=== PATIENT | female | born 1995 | race Caucasian/White ===

== ENCOUNTER 2018-03-20 06:00 | Inpatient (IN) ==
[2018-03-20] MEDS ORDERED: Ondansetron 4 MG/2 ML VIAL IVP PRN ×2 (06:15→07:46)
[2018-03-20] MEDS ORDERED: Famotidine 20 MG/2 ML VIAL IVP PRN (06:15)
[2018-03-20] MEDS ORDERED: Metoclopramide 10 MG/2 ML VIAL IVP PRN (06:15)
[2018-03-20] MEDS ORDERED: *HR* Nalbuphine 10 MG/ML AMPUL IVP PRN (06:15)
[2018-03-20] MEDS ORDERED: Lidocaine 1% 20 ML MDV INFILT PRN (06:15)
[2018-03-20] MEDS ORDERED: Ringers Solution, Lactated 1,000 ML IVC SCH (06:15)
[2018-03-20] MEDS ORDERED: Naloxone 0.4 MG/ML INJ IVP PRN ×2 (06:15→07:46)
[2018-03-20] MEDS ORDERED: miSOPROStol 100 MCG TABLET PO PRN (06:18)
[2018-03-20 06:56] LABS: Basophils # 0.1 K/mcL (0.0-0.2); Basophils % 0.6 %; Eosinophils # 0.2 K/mcL (0.0-0.6); Eosinophils % 1.9 %; Hematocrit 38.2 % (35.3-44.9); Immature Granulocytes % 3.9 % (0-4); Lymphocytes # 2.4 K/mcL (0.6-4.6); Lymphocytes % 19.6 %; Mean Corpuscular Hemoglobin 31.5 pg (28.0-33.3); Mean Corpuscular Volume 92.5 fL (83.0-100.0); Mean Platelet Volume 10.7 fL (9.4-12.4); Monocytes # 1.1 K/mcL (0.0-1.3); Monocytes % 9.4 %; Neutrophils # 7.8 K/mcL (1.6-8.9); Platelet Count 239 K/mcL (140-400); Red Blood Count 4.13 M/mcL (3.82-4.97); Red Cell Distribution Width 13.7 % (11.5-14.5); Segmented Neutrophils % 64.6 %
[2018-03-20] MEDS ORDERED: Penicillin G Potassium 5,000,000 UNIT in 0.9 % Sodium Chloride Mini Bag 100 ML IVPB ONE (07:27)
[2018-03-20] MEDS ORDERED: Oxytocin 20 units/ LR 1000 mL 20 UNIT/1,000 ML BAG IVC SCH (07:45)
[2018-03-20] MEDS ORDERED: *HR* FentaNYL (PF) 100 MCG/2 ML VIAL EP ONE (07:46)
[2018-03-20] MEDS ORDERED: Bupivacaine-MPF 0.25% 10 ML VIAL EP ONE (07:46)
[2018-03-20] MEDS ORDERED: EPHEDrine 50 MG/ML VIAL IVP PRN (07:46)
--- NOTE | 2018-03-20 07:50 | Anesthesia Evaluation PreOp ---
Date of Encounter: 03/20/18 Time of Encounter: 07:48 - Past History Planned Operation: ELIZABETH Cardiac History: Denies any Significant Hx Pulmonary History: Denies Any Significant HX MACHINE MOLDER SQUEEZE History: Denies Any Significant HX Other Medical History: Other (anemia) Anesthesia History: No Prior Anesthetic Complications, Past Anesthesia ([place] teeth) : Yes Alcohol Use: none Drug use: none Medications and Allergies Ferrous Sulfate [Iron] 325 mg PO 03/20/18 [History] Vit/Iron Fumarate/FA [ Tablet] 1 each PO 03/20/18 [History] 3 Allergy/AdvReac Type Severity Reaction Status Date / Time No Known Allergies Allergy Verified 03/20/18 06:11 - Meds/Allergy Pre-op Review Medications Reviewed: Yes Allergies Reviewed: Yes Beta Blockers on Current Med List: No Anesthesia Results - Labs 03/20/18 06:26 Anesthesia Exam BP 130/73 P 95 R 16 T 97.4 Height: 5'3" Weight: 66.1kg NPO (# of Hours): 3 Pain Scale: 0 Pain Scale Used: Numeric (1 - 10) - HEENT Pupil (Motor): Pupils equal Mallampati: II Teeth: Normal Oral Opening: Greater than 3 - MACHINE MOLDER SQUEEZE LOC: Oriented MACHINE MOLDER SQUEEZE Motor: Normal RUE, Normal LUE, Normal RLE, Normal LLE, Normal Face MACHINE MOLDER SQUEEZE Sensory: Normal: RUE, LUE, RLE, LLE, Face - Cardiac Rhythm: Regular Murmur: None JVD: No Carotid Bruit: No - Pulmonary Breath Sounds: bilateral Clear Respiratory Effort: Symmetrical Anesthesia Assess/Plan ASA Score: 2 Modified Cranks Scale for Level of Consciousness: Cooperative, oriented, and tranquil Anesthetic Plan: Regional Autologous Blood: No Monitoring Plan: Standard Monitors Recovery Plan: Other
[2018-03-20] MEDS ORDERED: Epidural Premix (fent/bupiv) 110 ML EP SCH (08:00)
[2018-03-20] MEDS ORDERED: Bupivacaine-MPF 0.25% 10 ML VIAL ONE (08:23)
[2018-03-20] MEDS ORDERED: *HR* FentaNYL (PF) 100 MCG/2 ML VIAL ONE (08:23)
[2018-03-20] MEDS ORDERED: Lidocaine -MPF 1% 5 ML AMPUL ONE (08:23)
[2018-03-20 08:49] LABS: Amphetamine Screen,Urine Negative ng/mL (Cutoff=1000); Barbiturate Screen,Urine Negative ng/mL (Cutoff=200); Benzodiazepines Screen,Urine Negative ng/mL (Cutoff=200); Cannabinoid Screen,Urine Negative ng/mL (Cutoff = 50); Cocaine Screen,Urine Negative ng/mL (Cutoff= 300); Opiate Screen,Urine Negative ng/mL (Cutoff=300); Phencyclidine Screen,Urine Negative ng/mL (Cutoff=25)
--- NOTE | 2018-03-20 09:40 | OB/GYN History & Physical ---
Date of Encounter: 03/20/18 Time of Encounter: 09:35 Assessment and Plan (1) 40 weeks gestation of Current visit: Yes Status: Acute Admit to labor and delivery for elective IOL GBS positive - PCN prophylaxis Patient may have nubain/epidural upon request Pitocin per protocol Consider AROM for augmentation Anticipate vaginal delivery POC per consult with Dr Solomon (2) GBS (group B Streptococcus carrier), +RV culture, currently Current visit: Yes Status: Acute History of Present Illness Chief complaint: IOL HPI: Ms. Manuel is a 22 year old at 40 weeks and 0 days that presents to labor and delivery for elective IOL. Her course has been normal. She states positive movement. She denies headaches, vision changes, epigastric pain, leaking of fluid, and vaginal bleeding. Labs: Blood type A- Hep B NR HIV NR RPR neg Varicella nonimmune GBS positive Past Med Surg Social Fam HX - Past Medical History Medical history: no medical history Psychiatric history: no psych history - Past Surgical History Surgical History: other Additional surgical history: wisdom teeth - Social History Smoking Status: Never smoker Smokeless Tobacco Status: No Alcohol use: none Drug use: none - Family History Mother Living Status: Still Living Obstetrical History - Pregnancies : 2 Para: 1 Term: 1 : 0 Ab's: 0 Livin Medications and Allergies Ferrous Sulfate [Iron] 325 mg PO 03/20/18 [History] Vit/Iron Fumarate/FA [ Tablet] 1 each PO 03/20/18 [History] 3 Allergy/AdvReac Type Severity Reaction Status Date / Time No Known Allergies Allergy Verified 03/20/18 06:11 Review of System OB All systems PM: reviewed and no additional remarkable complaints except as stated Exam - Constitutional Constitutional: well developed, well nourished, no acute distress, average body habitus - HEENT HEENT: Normocephaly, Mucus Membranes Moist - Neck Neck exam: full ROM - Lungs Respiratory exam: CTAB - Cardiovascular Cardiovascular exam: RRR, +S1, +S2 - Abdomen Abdomen: Present: bowel sounds normal, gravid, non tender - Extremities Extremities exam: normal capillary refill, normal inspection, radial pulses palpable and symmetrical Deep Tendon Reflex Grade: 2+ Normal - Vagina Vagina: Present: normal moisture - Cervix Dilation: 2 (2-3) Effacement: 60 Station: -2 - Uterus Uterus exam: Present: normal size, normal contour Results Result Diagrams: 03/20/18 06:26 Abnormal lab results WBC 12.1 K/mcL (4.3-11.1) H 03/20/18 06:26 All other labs normal. - VTE Reasons for not Prescribing Prophylaxis: Treatment not Indicated - Low risk for VTE
[2018-03-20] MEDS ORDERED: Methylergonovine 0.2 MG/ML AMPUL IM ONE (10:21)
--- NOTE | 2018-03-20 12:15 | OB Labor Progress Note ---
Date of Encounter: 03/20/18 Time of Encounter: 12:13 Labor Progress Note - Subjective Subjective: Doing well; resting comfortably in bed. States pain is tolerable at this point - Vital Signs Vital Signs: VSS - Cervix Cervix: 4/70/-2 midposition on patient's left - Heart Tones Heart Tones: 155 - [place]: Contractions every 2-3 minutes - Plan Plan: Continue routine labor management GBS positive - PCN prophylaxis Pitocin infusing Anticipate vaginal delivery Patient may have nubain/epidural upon request POC per consult with Dr Solomon
[2018-03-20] MEDS: Penicillin G Potassium 2,500,000 UNIT in 0.9 % Sodium Chloride 100 ML IVPB SCH ×3 (12:31→20:48)
--- NOTE | 2018-03-20 14:19 | Anesthesia Procedures ---
Date of Encounter: 03/20/18 Time of Encounter: 13:38 Procedures: Anesthesia - Epidural/Spinal Patient ID/Chart reviewed: Yes Patient examined: Yes OB Eval: Gestational age: 40 OB Eval: : 2 OB Eval: Hx Para: 1 OB Eval: Dilated at (cm): 5 OB Eval: Contractions: Non-stressed pattern Consent Obtained: Yes Supplemental Oxygen: None/Room Air Site Prep: Aseptic Technique, Sterile prep and drape, Povidone-Iodine 1% Patient position: upright Local Anesthetic: Lidocaine 1% Amount of Local Anesthetic used: 3 Touhy Needle Gauge: 18 Touhy Needle Depth (cm): 6 Catheter Depth at Skin (cm): 15 Test Dose (1.5% Lido + Epi): Volume given (mls): 3 Test Dose Result: Negative Loading Dose: 0.25% Marcaine (mls): 7 Loading Dose: Fentanyl (mcg): 100 Loading Dose Administered: Thru Catheter Infusion Med: 0.125% Bupivacaine w/ 2 mcg/ml Fentanyl Infusion Rate (mls/hr): [address]: Tegaderm, Tape Interspace Used: L4-L5 Loss of Resistance (CORBIN): Yes Blood: No CSF: No Paresthesia: No Procedure: ELIZABETH placed first pass in upright position without any immediate noted complications. VSS and FHT stable throughout. Vitals + FHT's: 1338 BP 126/82 P 100 R 16 1405 BP 115/60 P 89 R 16 FHT 140s
--- NOTE | 2018-03-20 16:03 | OB Labor Progress Note ---
Date of Encounter: 03/20/18 Time of Encounter: 16:01 Labor Progress Note - Subjective Subjective: Resting comfortably after epidural - Vital Signs Vital Signs: VSS - Cervix Cervix: 5/80/-2 anterior - Heart Tones Heart Tones: 155 - [place]: Contractions every 2-4 minutes - Interventions Interventions: AROM for small amount of clear fluid - Plan Plan: Continue routine labor management GBS positive Consider restarting pitocin if needed for adequate contractions Anticpate vaginal delivery POC per consult with Dr Solomon
[2018-03-21] MEDS ORDERED: Methylergonovine 0.2 MG/ML AMPUL IM ONE (00:09)
--- NOTE | 2018-03-21 00:16 | OB/GYN Procedure Note ---
Delivery - Delivery Date: 03/20/18 Intrapartum events: none Delivery induction: oxytocin Delivery augmentation: rupture of membranes Delivery monitor: external FHT, external uterine Anesthesia: epidural Quantitated Blood Loss: 200 - (s) A Infant Delivery Date: 03/20/18 Infant Delivery Time: 23:38 Presentation: vertex Position: SAMAN Route of delivery: Gender: Male Viability: Viable Pounds: 7 Ounces: 13 Weight Gram: 3535 kg at 1 minute: 8 at 5 mins: 9 Shoulder Dystocia: not encountered Specimens collected: cord blood Placenta: spontaneous Cord: 3 umbilical vessels, delivered through nuchal - Repair Episiotomy: none Laceration Description: Perineal - 1st Degree - Complications Delivery complications: none Delivery comments: Patient progressed to complete and began spontaneously pushing to of viable , vigorous, male in the SAMAN position. Loose nuchal, delivered through. No meconium and no shoulder dystocia encountered. Placed on maternal abdomen, warmed, dried, and stimulated. Cord double clamped and cut with assistance of father after pulsations ceased. Placenta delivered spontaneously and appears grossly intact with 3 vessel cord. Upon perineal inspection, 1st degree perineal laceration noted. Repaired in the usual fashion with 3-0 monocryl. Fundus firm and lower uterine segment soft, methergine given IM. EBL 200. Oozing ceased after methergine given. and mother stable in recovery. Dr Solomon notified of delivery. - Disposition Mom disposition: stable in LDR disposition: stable in LDR
[2018-03-21] MEDS ORDERED: Oxytocin 20 units/ LR 1000 mL 20 UNIT/1,000 ML BAG IVC SCH (01:51)
[2018-03-21] MEDS ORDERED: Sennosides 8.6 MG TABLET PO PRN (01:51)
[2018-03-21] MEDS ORDERED: Acetaminophen 325 MG TABLET PO PRN (01:51)
[2018-03-21] MEDS ORDERED: Rho Immune Globulin 1,500 UNIT SYRINGE IM PRN (01:51)
[2018-03-21] MEDS ORDERED: Oxytocin 20 units/ LR 1000 mL 20 UNIT/1,000 ML BAG IVC ONE (01:51)
[2018-03-21] MEDS ORDERED: Measles/Mumps/Rubella Vacc 0.5 ML VIAL SQ PRN (01:51)
[2018-03-21] MEDS ORDERED: Benzocaine/Menthol 56 GM AEROSOL SPRAY TP PRN (01:51)
--- NOTE | 2018-03-21 09:20 | OB/GYN Progress Note ---
Date of Encounter: 03/21/18 Time of Encounter: 09:17 - Assessment and Plan (1) Vaginal delivery Current Visit: Yes Status: Acute Continue routine care Ice to perineum when necessary Dermoplast when necessary Anticipate discharge home tomorrow (2) Breast feeding status of mother Current Visit: Yes Status: Acute consult (3) Rh negative, delivered, current hospitalization Current Visit: Yes Status: Acute Awaiting rhogam evaluation of the Subjective - Subjective Principal diagnosis: s/p Interval history: Feeling well. OOB without dizziness. Voiding independently. Tolerating regular diet. Cramping minimal, using ibuprofen. Ambulating independently. every 2-3 hours. Some perineal discomfort - using ice pack. Patient reports: appetite normal, voiding normally, pain well controlled, ambulating normally [place]: doing well, nursing well Objective - Latest Vital Signs Latest vital signs: Vital Signs Temp Pulse Resp BP Pulse Ox 03/21/18 08:43 98.4 F 90 14 118/82 99 03/21/18 04:10 98.7 F 97 16 131/77 96 03/21/18 03:15 97.7 F 96 18 121/77 96 03/21/18 02:10 98.3 F 89 16 119/78 97 Intake and Output 03/20/18 03/21/18 03/21/18 23:59 07:59 15:59 Intake Total 100 / 100 700 / 700 Output Total 1700 / 1700 Balance 100 / 100 -1000 / -1000 Intake: IV Fluids 100 / 100 Pfizerpen 2,500,000 UNIT In 0.9 100 / 100 % Sodium Chloride 100 ML @ 100 mls/hr IVPB Q4HR [facility] Rx#: [id number] Oral 200 / 200 Other 500 / 500 Output: Urine 900 / 900 Estimated Blood Loss 200 / 200 Catheter 600 / 600 Other: Weight 63.6 kg Patient Weight 03/21/18 23:59 Weight 63.6 kg - Exam Lungs: bilateral: normal Chest: Normal S1, Normal S2 Extremities: Present: normal Abdomen: Present: normal appearance, soft Uterus: Present: normal, firm Uterus Position: At Umbilicus, Midline - Labs Labs: Laboratory Results - last 24 hr 03/21/18 00:15 Baby's Blood Type A RH POSITIVE Mother's Blood Type A RH NEGATIVE Rhogam Indicated YES
[2018-03-21] MEDS: Prenatal Vit/FA 1 EACH TABLET PO SCH (09:43)
[2018-03-21] MEDS: Ibuprofen 600 MG TABLET PO PRN ×2 (09:43→20:41)
--- NOTE | 2018-03-22 07:57 | Discharge Summary ---
Date of Encounter: 03/22/18 Time of Encounter: 07:52 - Discharge Diagnosis (1) Breast feeding status of mother Priority: Secondary Status: Acute Comments: support prn (2) Vaginal delivery Priority: Primary Status: Acute Comments: Continue routine care discharge home today follow up with CNM in 4-6 weeks - Discharge Medications Prescriptions: Ibuprofen [Motrin] 600 mg PO Q6HR PRN #60 tablet PRN Reason: Cramping Home Medications: Vit/Iron Fumarate/FA [ Tablet] 1 each PO 03/20/18 [History] Benzocaine/Menthol [place] [Dermoplast [place]] 1 appl TP QID PRN aerosol 03/22/18 [Rx] Ibuprofen [Motrin] 600 mg PO Q6HR PRN #60 tablet 03/22/18 [Rx] Vit/FA 1 each PO DAILY tablet 03/22/18 [Rx] Allergies/Adverse Reactions: 3 Allergy/AdvReac Type Severity Reaction Status Date / Time No Known Allergies Allergy Verified 03/20/18 06:11 Data Procedures and tests throughout hospitalization: Laboratory Tests 03/20/18 03/20/18 03/21/18 06:26 06:45 00:15 WBC 12.1 H RBC 4.13 Hgb 13.0 Hct 38.2 MCV 92.5 MCH 31.5 MCHC 34.0 RDW 13.7 Plt Count 239 MPV 10.7 Immature Gran % 3.9 Seg Neutrophils % 64.6 Lymphocytes % 19.6 Monocytes % 9.4 Eosinophils % 1.9 Basophils % 0.6 Neutrophils # 7.8 Lymphocytes # 2.4 Monocytes # 1.1 Eosinophils # 0.2 Basophils # 0.1 Urine Opiates Screen Negative Ur Barbiturates Screen Negative Ur Phencyclidine Scrn Negative Ur Amphetamines Screen Negative U Benzodiazepines Scrn Negative Urine Cocaine Screen Negative U Marijuana (THC) Screen Negative Ur Drug Screen Interp See Below Screen NEGATIVE Baby's Blood Type A RH POSITIVE Mother's Blood Type A RH NEGATIVE Rhogam Indicated YES Rhogam Req for Mother 1 Labs on day of discharge: Labs from last 24 hours 03/21/18 00:15 Screen NEGATIVE Baby's Blood Type A RH POSITIVE Mother's Blood Type A RH NEGATIVE Rhogam Indicated YES Rhogam Req for Mother 1 Date of admission: 03/20/18 06:04 Primary care physician: PCP NONE Consults: 03/21/18 01:51 Consult to Cto [CONS] Routine Comment: Vaginal delivery, consult needed Discharging clinician: Zohreh Marroquin Anticipated date of discharge: 03/22/18 - Patient Status Disposition: Home, Self-Care Condition: Good Functional capacity at discharge: independent ambulation - Discharge Instructions Follow Up With: NONE,PCP [Primary Care Provider] - Guerda Driver CNM [Advanced Practice Nurse] - - Diet and Activity Activity: increase activity as tolerated Diet: regular diet Hospital Course Reason for admission: induction of labor Delivery: Episiotomy: none Laceration: 1st degree Other procedures: none complications: uterine atony (methergine x1) Discharge diagnosis: IUP at term delivered [place] baby: male (breast feeding) Time Attestation: Total time spent providing and/or coordinating discharge services: Time Spent: Less than 30 minutes Exam - Constitutional Vitals: Temp Pulse Resp BP Pulse Ox 97.9 F 85 16 108/72 97 03/21/18 20:30 03/21/18 20:30 03/21/18 20:30 03/21/18 20:30 03/21/18 20:30 General appearance IM: A&O X 3, pleasant, answers questions appropriately - Respiratory Respiratory exam: Present: CTAB - Cardiovascular Cardiovascular exam IM: Present: RRR, +S1, +S2 - GI/Abdominal GI/Abdominal exam IM: normal bowel sounds - Uterine Tone: Firm Uterus Position: 2 Fingers Below Umbilicus, Midline - Extremities Exam Extremities exam IM: Present: full ROM - Neurological Exam Neurological exam: alert, oriented X3, reflexes normal
[2018-03-22 08:39] VITALS: BP 109/73
[2018-03-22] MEDS: Ibuprofen 600 MG TABLET PO PRN (10:37)
[2018-03-22] MEDS: Prenatal Vit/FA 1 EACH TABLET PO SCH (10:38)
== END 2018-03-22 13:30 | disposition home or self-care (01) | DRG 775 ==
LOC: 1NENULAB 06:04 → 1NENUOBS 03-21 01:48
PROVIDERS: ADMIT Advanced Practice Midwife; ATTEND Advanced Practice Midwife